=== PATIENT | male | born 1970 | race Caucasian/White ===

== ENCOUNTER 2020-01-06 15:52 | Inpatient (IN) | payer MEDICAID ==
[~2020-01-06] VITALS: Ht 182.9 cm; Wt 131.5 kg
[2020-01-06] MEDS ORDERED: MORPHINE SULFATE 4 MG/ML CPJ (NOT FOR IM USE) IV STA (17:42)
[2020-01-06] MEDS ORDERED: ONDANSETRON HCL 4MG/2ML INJ IV STA (17:42)
[2020-01-06 18:44] LABS: BASOPHILS % 0.5 % (0.0-2.0); EOSINOPHILS % 1.8 % (0.0-5.0); HEMATOCRIT. 35.3 % (42.0-52.0); HEMOGLOBIN. 11.9 g/dL (14.0-18.0); LYMPHOCYTES % 44.7 % (20.0-50.0); MEAN CORPUSCULAR HEMOGLOBIN 28.8 pg (28.0-32.0); MEAN CORPUSCULAR VOLUME 85.6 fL (80.0-94.0); MEAN PLATELET VOLUME 10.5 fl (7.4-10.4); PLATELET 137 x1000/uL (130-400); RED BLOOD CELL COUNT 4.13 mill/uL (4.7-6.1)
[2020-01-06 18:46] LABS: CHLORIDE 110 mEq/L (98-107)
[2020-01-06] MEDS ORDERED: ASPIRIN 81MG TABLET PO ONE (20:15)
[2020-01-06] MEDS: ONDANSETRON HCL 4MG/2ML INJ IV PRN (21:43)
[2020-01-06] MEDS: MORPHINE SULFATE 2 MG/ML CPJ (NOT FOR IM USE) IV PRN (21:43)
[2020-01-06] MEDS ORDERED: CLONIDINE 0.1MG TABLET PO PRN (21:45)
[2020-01-06] MEDS ORDERED: METO100T16 PO (23:43)
[2020-01-06 23:44] VITALS: BP 129/84
[2020-01-06] MEDS ORDERED: SIMV10TA97 PO (23:44)
[2020-01-06] MEDS ORDERED: TOPUD PO (23:44)
[2020-01-06] MEDS ORDERED: RIVA20TA PO (23:44)
[2020-01-06] MEDS ORDERED: LOSA100T32 PO (23:44)
[2020-01-06] MEDS ORDERED: GABA-531 PO (23:44)
[2020-01-06] MEDS ORDERED: FAMO-135 MT (23:44)
[2020-01-07] MEDS ORDERED: LORAZEPAM 1MG TABLET PO PRN (00:30)
[2020-01-07] MEDS ORDERED: MORPHINE SULFATE 2 MG/ML CPJ (NOT FOR IM USE) IV PRN (00:30)
[2020-01-07] MEDS ORDERED: NON FORMULARY PATIENT HOME MED XX SCH (00:30)
[2020-01-07] MEDS ORDERED: METF-815 PO (00:35)
[2020-01-07 04:00] VITALS: BP 131/86
[2020-01-07] MEDS: BLOOD SUGAR DIAGNOSTIC STRIP TEST SCH ×4 (06:33→20:36)
[2020-01-07 07:09] LABS: HDL CHOLESTEROL 46 mg/dL (40-59); LDL CHOLESTEROL 113 mg/dL (5-100)
[2020-01-07 07:12] LABS: CREATINE KINASE 127 IU/L (39-308)
[2020-01-07 07:13] LABS: CREATINE KINASE MB FRACTION < 1.0 ng/mL (0.5-3.6)
[2020-01-07 07:52] VITALS: BP 160/91
[2020-01-07] MEDS: MORPHINE SULFATE 2 MG/ML CPJ (NOT FOR IM USE) IV PRN ×2 (07:58→16:57)
[2020-01-07] MEDS: ONDANSETRON HCL 4MG/2ML INJ IV PRN (08:10)
[2020-01-07] MEDS ORDERED: LOSARTAN POTASSIUM 100 MG TABLET PO SCH (09:00)
[2020-01-07] MEDS: GABAPENTIN 300MG CAPSULE PO SCH (09:22)
[2020-01-07] MEDS: METOPROLOL TARTRATE 100MG TABLET PO SCH ×2 (09:23→20:39)
[2020-01-07] MEDS: METFORMIN HCL 500MG TABLET PO SCH ×2 (09:23→18:44)
[2020-01-07 12:00] VITALS: BP 138/71
[2020-01-07] MEDS: DILTIAZEM HCL 60MG TABLET PO SCH ×2 (13:03→18:44)
[2020-01-07 14:59] LABS: CLARITY URINE CLEAR (CLEAR); COLOR URINE YELLOW (YELLOW); KETONES URINE NEGATIVE (NEGATIVE); LEUKOCYTE ESTERASE URINE NEGATIVE (NEGATIVE); NITRITE URINE NEGATIVE (NEGATIVE); OCCULT BLOOD URINE NEGATIVE (NEGATIVE); PH URINE 5.5 (4.5-8.0); PROTEIN URINE NEGATIVE (NEGATIVE); SPECIFIC GRAVITY URINE 1.015 (1.005-1.030)
[2020-01-07 15:13] LABS: *AMPHETAMINES SCREEN URINE NEGATIVE (NEGATIVE); *BARBITURATES SCREEN URINE NEGATIVE (NEGATIVE); *BENZODIAZEPINES SCREEN URINE PRESUMTIVE POSITIVE (NEGATIVE); CANNABINOID URINE SCREEN NEGATIVE (NEGATIVE); METHADONE URINE SCREEN NEGATIVE (NEGATIVE); OPIATES URINE SCREEN PRESUMTIVE POSITIVE (NEGATIVE); PHENCYCLIDINE URINE SCREEN NEGATIVE (NEGATIVE)
[2020-01-07 15:14] LABS: *COCAINE SCREEN URINE NEGATIVE (NEGATIVE)
[2020-01-07 16:00] VITALS: BP 151/71
[2020-01-07] MEDS ORDERED: RIVAROXABAN 20 MG TABLET PO SCH (17:00)
[2020-01-07] MEDS ORDERED: ATORVASTATIN CALCIUM 10MG TABLET PO SCH ×2 (21:00)
[2020-01-07] MEDS ORDERED: MEDICATION NOT ON FORMULARY EA (Simvastatin 10 MG) PO SCH (21:00)
[2020-01-07] MEDS ORDERED: FAMOTIDINE 20MG TABLET PO SCH (21:00)
[2020-01-08] VITALS: BP 114/73
[2020-01-08] MEDS: MORPHINE SULFATE 2 MG/ML CPJ (NOT FOR IM USE) IV PRN ×2 (01:13→08:50)
[2020-01-08] MEDS: DILTIAZEM HCL 60MG TABLET PO SCH ×2 (01:14→06:11)
[2020-01-08 04:00] VITALS: BP 111/54
[2020-01-08 06:00] VITALS: BP 112/59
[2020-01-08] MEDS: BLOOD SUGAR DIAGNOSTIC STRIP TEST SCH ×2 (06:00→12:20)
[2020-01-08 07:02] LABS: CHLORIDE 105 mEq/L (98-107)
[2020-01-08 07:24] LABS: EOSINOPHILS % 2.8 % (0.0-5.0); HEMATOCRIT. 33.4 % (42.0-52.0); HEMOGLOBIN. 11.2 g/dL (14.0-18.0); LYMPHOCYTES % 37.4 % (20.0-50.0); MEAN CORPUSCULAR HEMOGLOBIN 28.8 pg (28.0-32.0); MEAN CORPUSCULAR VOLUME 85.8 fL (80.0-94.0); MEAN PLATELET VOLUME 11.2 fl (7.4-10.4); MONOCYTES % 12.2 % (2.0-8.0); NEUTROPHILS % 46.6 % (40.0-76.0); PLATELET 132 x1000/uL (130-400); RED BLOOD CELL COUNT 3.89 mill/uL (4.7-6.1); RED CELL DISTRIBUTION WIDTH 17.3 % (11.6-14.6)
[2020-01-08 08:00] VITALS: BP 122/70
[2020-01-08] MEDS: METFORMIN HCL 500MG TABLET PO SCH (09:06)
[2020-01-08] MEDS: GABAPENTIN 300MG CAPSULE PO SCH (09:06)
[2020-01-08 12:59] VITALS: BP 122/70
== END 2020-01-08 13:59 | disposition home or self-care (01) | DRG 201 ==
LOC: ER 15:52 → 6WST 20:10 → ENRESERV 21:25
PROVIDERS: ADMIT Internal Medicine; ATTEND Internal Medicine
DX: I48.91 Unspecified atrial fibrillation (principal); E87.8 Other disorders of electrolyte and fluid balance, not elsewhere classified; I24.8 Other forms of acute ischemic heart disease; E66.01 Morbid (severe) obesity due to excess calories; D64.9 Anemia, unspecified; E11.9 Type 2 diabetes mellitus without complications; R07.89 Other chest pain; E78.5 Hyperlipidemia, unspecified; I10 Essential (primary) hypertension; I16.0 Hypertensive urgency; Z88.8 Allergy status to other drugs, medicaments and biological substances; Z79.01 Long term (current) use of anticoagulants; Z79.84 Long term (current) use of oral hypoglycemic drugs; Z79.899 Other long term (current) drug therapy; Z71.3 Dietary counseling and surveillance; Z68.39 Body mass index [BMI] 39.0-39.9, adult
CPT/HCPCS: 36415; 71045; 80048; 80053; 80061; 80305; 81003; 82550; 82553; 82962; 83036; 83880; 84443; 84484; 85025; 93005; 96374; 99285; J2270; J2405

== ENCOUNTER 2020-01-29 23:18 | Inpatient (IN) | payer MEDICAID ==
[~2020-01-29] VITALS: Ht 182.9 cm; Wt 131.5 kg
[~2020-01-29 23:18] MED LIST: FAMO-135 MT; GABA-531 PO; LOSA100T32 PO; METF-815 PO; METO100T16 PO; RIVA20TA PO; SIMV10TA97 PO; TOPUD PO
[2020-01-30] MEDS ORDERED: MORPHINE SULFATE 4 MG/ML CPJ (NOT FOR IM USE) IV STA (00:22)
[2020-01-30] MEDS ORDERED: ONDANSETRON HCL 4MG/2ML INJ IV STA (00:22)
[2020-01-30] MEDS ORDERED: FAMOTIDINE 20MG/2ML VIAL IV STA (00:22)
[2020-01-30 00:44] LABS: BASOPHILS % 1.2 % (0.0-2.0); EOSINOPHILS % 1.5 % (0.0-5.0); HEMATOCRIT. 35.8 % (42.0-52.0); HEMOGLOBIN. 12.3 g/dL (14.0-18.0); LYMPHOCYTES % 38.4 % (20.0-50.0); MEAN CORPUSCULAR HEMOGLOBIN 29.9 pg (28.0-32.0); MEAN CORPUSCULAR VOLUME 86.9 fL (80.0-94.0); MEAN PLATELET VOLUME 10.7 fl (7.4-10.4); MONOCYTES % 9.8 % (2.0-8.0); NEUTROPHILS % 49.1 % (40.0-76.0); PLATELET 145 x1000/uL (130-400); RED BLOOD CELL COUNT 4.12 mill/uL (4.7-6.1); RED CELL DISTRIBUTION WIDTH 17.1 % (11.6-14.6)
[2020-01-30 00:52] LABS: CHLORIDE 104 mEq/L (98-107)
[2020-01-30 00:56] LABS: ETHANOL BLOOD 205 mg/dL
[2020-01-30 01:17] LABS: CLARITY URINE CLEAR (CLEAR); COLOR URINE YELLOW (YELLOW); SPECIFIC GRAVITY URINE 1.008 (1.005-1.030)
[2020-01-30 01:18] LABS: *AMPHETAMINES SCREEN URINE PRESUMTIVE POSITIVE (NEGATIVE); *BARBITURATES SCREEN URINE NEGATIVE (NEGATIVE); CANNABINOID URINE SCREEN NEGATIVE (NEGATIVE); KETONES URINE NEGATIVE (NEGATIVE); NITRITE URINE NEGATIVE (NEGATIVE); OCCULT BLOOD URINE NEGATIVE (NEGATIVE); PHENCYCLIDINE URINE SCREEN NEGATIVE (NEGATIVE); PROTEIN URINE NEGATIVE (NEGATIVE)
[2020-01-30 01:19] LABS: LEUKOCYTE ESTERASE URINE NEGATIVE (NEGATIVE)
[2020-01-30 01:21] LABS: *BENZODIAZEPINES SCREEN URINE PRESUMTIVE POSITIVE (NEGATIVE); *COCAINE SCREEN URINE NEGATIVE (NEGATIVE); METHADONE URINE SCREEN NEGATIVE (NEGATIVE); OPIATES URINE SCREEN NEGATIVE (NEGATIVE)
[2020-01-30] MEDS ORDERED: SODIUM CHLORIDE 0.9% 1,000 ML IV ONE (03:10)
[2020-01-30] MEDS ORDERED: LORAZEPAM 2MG/ML CPJ IV SCH (03:15)
[2020-01-30 08:30] VITALS: BP 136/98
[2020-01-30] MEDS ORDERED: DOCUSATE SODIUM 100MG CAPSULE PO PRN (09:00)
[2020-01-30] MEDS ORDERED: ZOLPIDEM TARTRATE 5MG TABLET PO PRN (09:00)
[2020-01-30] MEDS: BLOOD SUGAR DIAGNOSTIC STRIP TEST SCH ×4 (09:00→21:00)
[2020-01-30] MEDS ORDERED: LORAZEPAM 0.5MG TABLET PO PRN (09:00)
[2020-01-30] MEDS ORDERED: MAGNESIUM/ALUMINUM HYDROXIDE/SIMETHICONE 30ML UDC PO PRN (09:00)
[2020-01-30] MEDS ORDERED: CLONIDINE 0.1MG TABLET PO PRN (09:00)
[2020-01-30] MEDS ORDERED: KETOROLAC 15MG/ML VIAL IV PRN (09:00)
[2020-01-30] MEDS ORDERED: ENOXAPARIN 40MG/0.4ML SYR SUBCUT SCH (09:00)
[2020-01-30] MEDS ORDERED: IPRATROPIUM/ALBUTEROL 0.5-3(2.5)MG/3ML NEB NEB PRN (09:00)
[2020-01-30] MEDS ORDERED: GUAIFENESIN 200MG/10ML SUGAR FREE UDC PO PRN (09:00)
[2020-01-30] MEDS ORDERED: DEXTROSE 50% WATER 50ML SYRINGE IV PRN (09:00)
[2020-01-30] MEDS ORDERED: ONDANSETRON HCL 4MG/2ML INJ IV PRN (09:00)
[2020-01-30] MEDS ORDERED: ACETAMINOPHEN 325MG TABLET PO PRN ×2 (09:00)
[2020-01-30 09:18] VITALS: BP 136/98
[2020-01-30] MEDS: FAMOTIDINE 20MG TABLET PO SCH ×2 (11:00→21:01)
[2020-01-30] MEDS: ENOXAPARIN 30MG/0.3ML SYR SUBCUT SCH ×2 (11:07→21:03)
[2020-01-30] MEDS: ASPIRIN 325MG EC TABLET PO SCH (11:07)
[2020-01-30] MEDS: INSULIN LISPRO 100 UNITS/ML SUBCUT SCH ×3 (11:41→21:01)
[2020-01-30] MEDS ORDERED: DILTIAZEM HCL 60MG TABLET PO SCH (12:00)
[2020-01-30 12:27] VITALS: BP 140/88
[2020-01-30] MEDS: GABAPENTIN 100MG CAPSULE PO SCH ×2 (13:04→21:01)
[2020-01-30 16:00] VITALS: BP 131/77
[2020-01-30 16:17] LABS: CREATINE KINASE 542 IU/L (39-308)
[2020-01-30 16:18] LABS: CREATINE KINASE MB FRACTION 2.8 ng/mL (0.5-3.6)
[2020-01-30] MEDS: DILTIAZEM HCL 60MG TABLET PO SCH (17:38)
[2020-01-30 20:00] VITALS: BP 137/71
[2020-01-30 23:39] LABS: CREATINE KINASE 582 IU/L (39-308)
[2020-01-30 23:40] LABS: CREATINE KINASE MB FRACTION 2.3 ng/mL (0.5-3.6)
[2020-01-31] VITALS: BP 135/82
[2020-01-31] MEDS: DILTIAZEM HCL 60MG TABLET PO SCH ×2 (00:22→06:10)
[2020-01-31 04:00] VITALS: BP 131/82
[2020-01-31] MEDS: GABAPENTIN 100MG CAPSULE PO SCH (06:10)
[2020-01-31] MEDS: BLOOD SUGAR DIAGNOSTIC STRIP TEST SCH (07:58)
[2020-01-31] MEDS: INSULIN LISPRO 100 UNITS/ML SUBCUT SCH (07:58)
[2020-01-31] MEDS: FAMOTIDINE 20MG TABLET PO SCH (08:16)
[2020-01-31] MEDS: ASPIRIN 325MG EC TABLET PO SCH (08:17)
[2020-01-31] MEDS: ENOXAPARIN 30MG/0.3ML SYR SUBCUT SCH (08:18)
[2020-01-31 08:30] VITALS: BP 107/57
[2020-01-31 09:17] VITALS: BP 107/57
== END 2020-01-31 11:47 | disposition home or self-care (01) | DRG 201 ==
LOC: ER 23:18 → 7WST 01-30 04:32 → ENRESERV 01-30 07:17
PROVIDERS: ADMIT Internal Medicine; ATTEND Internal Medicine
DX: I48.91 Unspecified atrial fibrillation (principal); K74.60 Unspecified cirrhosis of liver; E11.9 Type 2 diabetes mellitus without complications; E66.9 Obesity, unspecified; E78.00 Pure hypercholesterolemia, unspecified; F15.10 Other stimulant abuse, uncomplicated; I10 Essential (primary) hypertension; F19.10 Other psychoactive substance abuse, uncomplicated; Z88.8 Allergy status to other drugs, medicaments and biological substances; Z68.39 Body mass index [BMI] 39.0-39.9, adult; Z79.899 Other long term (current) drug therapy; Z90.49 Acquired absence of other specified parts of digestive tract
CPT/HCPCS: 36415; 71045; 74176; 80053; 80061; 80305; 80320; 81003; 82550; 82553; 82962; 83036; 84484; 85025; 86850; 86900; 93005; 93970; 99285; J1650; J1815; J1885; J2060; J2270; J2405; J3490; G0480

== ENCOUNTER 2020-04-01 08:11 | Inpatient (IN) | payer MEDICAID ==
[~2020-04-01] VITALS: Ht 177.8 cm; Wt 117.9 kg
[~2020-04-01 08:11] MED LIST changes: -TOPUD PO
[2020-04-01] MEDS ORDERED: ASPIRIN 325MG EC TABLET PO ONE (08:45)
[2020-04-01 09:04] LABS: BASOPHILS % 0.4 % (0.0-2.0); EOSINOPHILS % 0.9 % (0.0-5.0); HEMATOCRIT. 39.1 % (42.0-52.0); MEAN CORPUSCULAR HEMOGLOBIN 27.5 pg (28.0-32.0); MEAN CORPUSCULAR VOLUME 82.7 fL (80.0-94.0); MEAN PLATELET VOLUME 10.4 fl (7.4-10.4); MONOCYTES % 8.9 % (2.0-8.0); NEUTROPHILS % 48.8 % (40.0-76.0); PLATELET 186 x1000/uL (130-400); RED BLOOD CELL COUNT 4.73 mill/uL (4.7-6.1); RED CELL DISTRIBUTION WIDTH 15.5 % (11.6-14.6)
[2020-04-01 09:08] LABS: CHLORIDE 106 mEq/L (98-107)
[2020-04-01] MEDS ORDERED: ONDANSETRON HCL 4MG/2ML INJ IV ONE (09:15)
[2020-04-01] MEDS ORDERED: MORPHINE SULFATE 4 MG/ML CPJ (NOT FOR IM USE) IV ONE (09:15)
[2020-04-01 09:40] LABS: ETHANOL BLOOD 377 mg/dL
[2020-04-01] MEDS ORDERED: CLONIDINE 0.1MG TABLET PO PRN (13:00)
[2020-04-01] MEDS ORDERED: ONDANSETRON HCL 4MG/2ML INJ IV PRN (13:00)
[2020-04-01 13:07] LABS: CLARITY URINE CLEAR (CLEAR); COLOR URINE YELLOW (YELLOW); KETONES URINE NEGATIVE (NEGATIVE); LEUKOCYTE ESTERASE URINE NEGATIVE (NEGATIVE); NITRITE URINE NEGATIVE (NEGATIVE); OCCULT BLOOD URINE NEGATIVE (NEGATIVE); PH URINE 5.5 (4.5-8.0); PROTEIN URINE NEGATIVE (NEGATIVE); SPECIFIC GRAVITY URINE 1.006 (1.005-1.030)
[2020-04-01 13:19] LABS: *AMPHETAMINES SCREEN URINE NEGATIVE (NEGATIVE); *BARBITURATES SCREEN URINE NEGATIVE (NEGATIVE); *BENZODIAZEPINES SCREEN URINE NEGATIVE (NEGATIVE); CANNABINOID URINE SCREEN NEGATIVE (NEGATIVE); OPIATES URINE SCREEN PRESUMTIVE POSITIVE (NEGATIVE); PHENCYCLIDINE URINE SCREEN NEGATIVE (NEGATIVE)
[2020-04-01 13:20] LABS: *COCAINE SCREEN URINE NEGATIVE (NEGATIVE); METHADONE URINE SCREEN NEGATIVE (NEGATIVE)
[2020-04-01] MEDS ORDERED: FOLIC ACID 1 MG, MVI, ADULT NO.1 10 ML in DEXTROSE 5% WATER 1,000 ML IV SCH ×3 (14:15)
[2020-04-01] MEDS ORDERED: POTASSIUM CHLORIDE 20MEQ TABLET SR PO SCH (14:15)
[2020-04-01] MEDS: CHLORDIAZEPOXIDE 25MG CAPSULE PO SCH ×2 (14:23→21:22)
[2020-04-01] MEDS: METOPROLOL TARTRATE 25MG TABLET PO SCH ×2 (14:45→21:22)
[2020-04-01] MEDS ORDERED: KETOROLAC 30MG/ML VIAL IV PRN (16:15)
[2020-04-01] MEDS: LORAZEPAM 2MG/ML CPJ IV PRN (18:12)
[2020-04-01] MEDS ORDERED: ENOXAPARIN 120MG/0.8ML SYR SUBCUT NR (22:00)
[2020-04-01 23:15] VITALS: BP 135/67
[2020-04-02] MEDS: ACETAMINOPHEN 325MG TABLET PO PRN (04:52)
[2020-04-02] MEDS: LORAZEPAM 2MG/ML CPJ IV PRN (04:52)
[2020-04-02] MEDS: CHLORDIAZEPOXIDE 25MG CAPSULE PO SCH ×3 (05:04→21:13)
[2020-04-02 07:27] LABS: BASOPHILS % 0.5 % (0.0-2.0); EOSINOPHILS % 0.7 % (0.0-5.0); HEMATOCRIT. 35.3 % (42.0-52.0); HEMOGLOBIN. 11.7 g/dL (14.0-18.0); MEAN CORPUSCULAR HEMOGLOBIN 27.4 pg (28.0-32.0); MEAN CORPUSCULAR VOLUME 82.5 fL (80.0-94.0); MEAN PLATELET VOLUME 10.5 fl (7.4-10.4); MONOCYTES % 14.5 % (2.0-8.0); NEUTROPHILS % 60.3 % (40.0-76.0); PLATELET 122 x1000/uL (130-400); RED BLOOD CELL COUNT 4.28 mill/uL (4.7-6.1); RED CELL DISTRIBUTION WIDTH 15.3 % (11.6-14.6)
[2020-04-02 07:40] LABS: CHLORIDE 104 mEq/L (98-107)
[2020-04-02 08:00] VITALS: BP 141/87
[2020-04-02] MEDS: ASPIRIN 81MG TABLET PO SCH (09:59)
[2020-04-02] MEDS: METOPROLOL TARTRATE 25MG TABLET PO SCH ×2 (09:59→21:14)
[2020-04-02] MEDS: ENOXAPARIN 120MG/0.8ML SYR SUBCUT SCH ×2 (10:00→21:25)
[2020-04-02 12:00] VITALS: BP 151/87
[2020-04-02] MEDS ORDERED: FOLIC ACID 1 MG, THIAMINE HCL 100 MG, MVI, ADULT NO.1 10 ML in DEXTROSE 5% WATER 1,000 ML IV SCH ×4 (14:00)
[2020-04-02 16:00] VITALS: BP 150/86
[2020-04-03] MEDS: CHLORDIAZEPOXIDE 25MG CAPSULE PO SCH (06:19)
[2020-04-03 06:25] LABS: BASOPHILS % 0.6 % (0.0-2.0); EOSINOPHILS % 1.5 % (0.0-5.0); HEMATOCRIT. 34.3 % (42.0-52.0); HEMOGLOBIN. 11.6 g/dL (14.0-18.0); LYMPHOCYTES % 35.8 % (20.0-50.0); MEAN CORPUSCULAR HEMOGLOBIN 27.7 pg (28.0-32.0); MEAN PLATELET VOLUME 10.9 fl (7.4-10.4); MONOCYTES % 14.5 % (2.0-8.0); NEUTROPHILS % 47.6 % (40.0-76.0); PLATELET 99 x1000/uL (130-400); RED BLOOD CELL COUNT 4.18 mill/uL (4.7-6.1)
[2020-04-03 06:35] LABS: CHLORIDE 102 mEq/L (98-107)
[2020-04-03 08:00] VITALS: BP 154/99
[2020-04-03] MEDS: ENOXAPARIN 120MG/0.8ML SYR SUBCUT SCH (09:00)
[2020-04-03] MEDS: ASPIRIN 81MG TABLET PO SCH (09:00)
[2020-04-03] MEDS: ACETAMINOPHEN 325MG TABLET PO PRN (09:23)
[2020-04-03] MEDS: METOPROLOL TARTRATE 25MG TABLET PO SCH (09:23)
[2020-04-03 12:00] VITALS: BP 124/79
[2020-04-03] MEDS ORDERED: METO25TA6 PO (12:43)
[2020-04-03 13:09] VITALS: BP 124/79
== END 2020-04-03 17:29 | disposition home or self-care (01) | DRG 203 ==
LOC: ER 08:11 → 5WST 10:17 → EDBEDREQTM 10:29 → EDBEDREQ 10:29 → ENRESERV 19:27
PROVIDERS: ADMIT Internal Medicine; ATTEND Internal Medicine
DX: M94.0 Chondrocostal junction syndrome [Tietze] (principal); K74.60 Unspecified cirrhosis of liver; E83.51 Hypocalcemia; I48.20 Chronic atrial fibrillation, unspecified; D64.9 Anemia, unspecified; E66.9 Obesity, unspecified; E78.5 Hyperlipidemia, unspecified; R73.03 Prediabetes; E87.6 Hypokalemia; I10 Essential (primary) hypertension; Y90.8 Blood alcohol level of 240 mg/100 ml or more; E78.00 Pure hypercholesterolemia, unspecified; F10.129 Alcohol abuse with intoxication, unspecified; Z88.8 Allergy status to other drugs, medicaments and biological substances; Z90.49 Acquired absence of other specified parts of digestive tract; Z68.37 Body mass index [BMI] 37.0-37.9, adult; Z71.3 Dietary counseling and surveillance
CPT/HCPCS: 36415; 71045; 80048; 80053; 80305; 80320; 81003; 83880; 84484; 85025; 93005; 93306; 96365; 99285; J1650; J1885; J2060; J2270; J2405; J3411; J3490; J7070; G0480

== ENCOUNTER 2020-12-17 11:58 | Emergency (ER) | payer MEDICAID ==
[~2020-12-17] VITALS: Ht 180.3 cm; Wt 113.0 kg
[~2020-12-17 11:58] MED LIST changes: -GABA-531 PO; +GABA-532 PO; -METF-815 PO; +METF-873 PO; -METO100T16 PO; +METO25TA6 PO
[2020-12-17] MEDS ORDERED: NITROGLYCERIN 0.4MG TABLET SL SL PRN (12:30)
[2020-12-17] MEDS ORDERED: ASPIRIN 81MG TABLET PO ONE (12:30)
[2020-12-17] MEDS ORDERED: DICYCLOMINE 10 MG/5 ML ORAL SYR PO ONE (12:30)
[2020-12-17] MEDS ORDERED: MAGNESIUM/ALUMINUM HYDROXIDE/SIMETHICONE 30ML UDC PO ONE (12:30)
[2020-12-17] MEDS ORDERED: VISCOUS LIDOCAINE 2% 15 ML UDC PO ONE (12:30)
[2020-12-17 12:50] LABS: BASOPHILS % 1.1 % (0.0-2.0); EOSINOPHILS % 0.8 % (0.0-5.0); HEMATOCRIT. 39.3 % (42.0-52.0); HEMOGLOBIN. 12.4 g/dL (14.0-18.0); LYMPHOCYTES % 31.2 % (20.0-50.0); MEAN CORPUSCULAR HEMOGLOBIN 24.4 pg (28.0-32.0); MEAN CORPUSCULAR VOLUME 76.9 fL (80.0-94.0); MEAN PLATELET VOLUME 10.4 fl (7.4-10.4); MONOCYTES % 6.5 % (2.0-8.0); NEUTROPHILS % 60.4 % (40.0-76.0); PLATELET 219 x1000/uL (130-400); RED BLOOD CELL COUNT 5.11 mill/uL (4.7-6.1); RED CELL DISTRIBUTION WIDTH 18.9 % (11.6-14.6)
[2020-12-17 12:56] LABS: CHLORIDE 107 mEq/L (98-107)
[2020-12-17 13:01] LABS: *AMPHETAMINES SCREEN URINE NEGATIVE (NEGATIVE); *BARBITURATES SCREEN URINE NEGATIVE (NEGATIVE); *BENZODIAZEPINES SCREEN URINE PRESUMTIVE POSITIVE (NEGATIVE); *COCAINE SCREEN URINE NEGATIVE (NEGATIVE); METHADONE URINE SCREEN NEGATIVE (NEGATIVE); OPIATES URINE SCREEN NEGATIVE (NEGATIVE)
[2020-12-17 13:02] LABS: CANNABINOID URINE SCREEN NEGATIVE (NEGATIVE); PHENCYCLIDINE URINE SCREEN NEGATIVE (NEGATIVE)
[2020-12-17 13:27] LABS: ETHANOL BLOOD 368 mg/dL
[2020-12-17] MEDS ORDERED: CHLORDIAZEPOXIDE 25MG CAPSULE PO ONE (14:30)
[2020-12-17] MEDS ORDERED: LORAZEPAM 1MG TABLET PO ONE (15:15)
[2020-12-17 15:45] VITALS: BP 119/71
== END 2020-12-17 16:23 | disposition home or self-care (01) ==
LOC: ER 11:58 → CANBEDREQ 18:53
DX: T51.0X1A Toxic effect of ethanol, accidental (unintentional), initial encounter (principal); R07.89 Other chest pain; R00.2 Palpitations; I10 Essential (primary) hypertension; E11.9 Type 2 diabetes mellitus without complications; I48.20 Chronic atrial fibrillation, unspecified; Y90.8 Blood alcohol level of 240 mg/100 ml or more; Z79.01 Long term (current) use of anticoagulants; Z88.8 Allergy status to other drugs, medicaments and biological substances; Y92.524 Gas station as the place of occurrence of the external cause
CPT/HCPCS: 36415; 71045; 74176; 80053; 80305; 80320; 83690; 83880; 84484; 85025; 93005; 99285; Z7610; G0480

== ENCOUNTER 2022-12-03 11:30 | Inpatient (IN) | payer MEDICAID ==
[~2022-12-03] VITALS: Ht 182.9 cm; Wt 108.9 kg
[2022-12-03] MEDS ORDERED: MORPHINE SULFATE 4 MG/ML CPJ (NOT FOR IM USE) IV ONE (11:45)
[2022-12-03] MEDS ORDERED: SODIUM CHLORIDE 0.9% 1,000 ML IV ONE ×2 (12:00→16:15)
[2022-12-03] MEDS: METOPROLOL TARTRATE 5MG/5ML VIAL IV SCH ×2 (12:05→17:41)
[2022-12-03 12:06] LABS: HEMATOCRIT. 39.3 % (42.0-52.0); HEMOGLOBIN. 12.6 g/dL (14.0-18.0); MEAN CORPUSCULAR HEMOGLOBIN 25.1 pg (28.0-32.0); MEAN PLATELET VOLUME 9.7 fl (7.4-10.4); PLATELET 272 x1000/uL (130-400); RED BLOOD CELL COUNT 5.03 mill/uL (4.7-6.1); RED CELL DISTRIBUTION WIDTH 20.4 % (11.6-14.6)
[2022-12-03 12:13] LABS: CHLORIDE 113 mEq/L (98-107)
[2022-12-03 12:38] LABS: ETHANOL BLOOD 365 mg/dL
[2022-12-03 12:41] LABS: NUCLEATED RED BLOOD CELLS 2 /100 WBC; PLATELET ESTIMATE NORMAL
[2022-12-03 16:06] LABS: *AMPHETAMINES SCREEN URINE PRESUMTIVE POSITIVE (NEGATIVE); *BARBITURATES SCREEN URINE NEGATIVE (NEGATIVE); *BENZODIAZEPINES SCREEN URINE NEGATIVE (NEGATIVE); *COCAINE SCREEN URINE NEGATIVE (NEGATIVE); CANNABINOID URINE SCREEN NEGATIVE (NEGATIVE); METHADONE URINE SCREEN NEGATIVE (NEGATIVE); OPIATES URINE SCREEN PRESUMTIVE POSITIVE (NEGATIVE); PHENCYCLIDINE URINE SCREEN NEGATIVE (NEGATIVE)
[2022-12-03] MEDS ORDERED: METOPROLOL SUCCINATE 50MG ER TABLET PO ONE (16:45)
[2022-12-03] MEDS ORDERED: PANTOPRAZOLE 40MG DR TABLET PO ONE (17:15)
[2022-12-03] MEDS ORDERED: VISCOUS LIDOCAINE 2% 15 ML UDC MM ONE (17:15)
[2022-12-03] MEDS ORDERED: MAGNESIUM/ALUMINUM HYDROXIDE/SIMETHICONE 30ML UDC PO ONE (17:15)
[2022-12-03] MEDS ORDERED: PROT40 MT (17:18)
[2022-12-03] MEDS ORDERED: MAG-55 MT (17:18)
[2022-12-03] MEDS ORDERED: KETOROLAC 15MG/ML VIAL IV ONE (18:00)
[2022-12-03] MEDS ORDERED: ACETAMINOPHEN 325MG TABLET PO PRN ×2 (18:15)
[2022-12-03] MEDS ORDERED: MAGNESIUM/ALUMINUM HYDROXIDE/SIMETHICONE 30ML UDC PO PRN (18:15)
[2022-12-03] MEDS ORDERED: NITROGLYCERIN 0.4MG TABLET SL SL PRN (18:15)
[2022-12-03] MEDS ORDERED: GUAIFENESIN 200MG/10ML SUGAR FREE UDC PO PRN (18:15)
[2022-12-03] MEDS ORDERED: ONDANSETRON HCL 4MG/2ML INJ IV PRN (18:15)
[2022-12-03] MEDS ORDERED: POTASSIUM CHLORIDE 20MEQ TABLET SR PO NR (18:15)
[2022-12-03] MEDS ORDERED: DOCUSATE SODIUM 100MG CAPSULE PO PRN (18:15)
[2022-12-03] MEDS ORDERED: CLONIDINE 0.1MG TABLET PO PRN (18:15)
[2022-12-03] MEDS ORDERED: IPRATROPIUM/ALBUTEROL 0.5-3(2.5)MG/3ML NEB NEB PRN (18:15)
[2022-12-03] MEDS ORDERED: ZOLPIDEM TARTRATE 5MG TABLET PO PRN (18:15)
[2022-12-03] MEDS ORDERED: ENOXAPARIN 100MG/ML SYR SUBCUT NR (18:30)
[2022-12-03] MEDS ORDERED: IPRATROPIUM BROMIDE (0.02%) 0.5MG/2.5ML NEB HHN PRN (18:30)
[2022-12-03] MEDS ORDERED: ALBUTEROL (0.083%) 2.5MG/3ML NEB HHN PRN (18:30)
[2022-12-03] MEDS: SODIUM CHLORIDE 0.9% 1,000 ML IV SCH (19:01)
[2022-12-03 19:25] LABS: INR 1.1
[2022-12-03] MEDS ORDERED: DEXTROSE 50% WATER 50ML SYRINGE IV PRN (19:30)
[2022-12-03 19:36] LABS: VITAMIN B12 SERUM > 2000.0 pg/mL (211-911)
[2022-12-03] MEDS: MVI, ADULT NO.1 10 ML, FOLIC ACID 1 MG, THIAMINE HCL 100 MG in SODIUM CHLORIDE 0.9% 1,0... IV NR ×4 (20:30)
[2022-12-03] MEDS: BLOOD SUGAR DIAGNOSTIC STRIP TEST SCH (21:00)
[2022-12-03] MEDS: INSULIN LISPRO 100 UNITS/ML SUBCUT SCH (21:00)
[2022-12-03 22:36] LABS: CREATINE KINASE MB FRACTION 1.7 ng/mL (0.5-3.6)
[2022-12-03] MEDS: FAMOTIDINE 20MG TABLET PO SCH (23:10)
[2022-12-03] MEDS: KETOROLAC 15MG/ML VIAL IV PRN (23:11)
[2022-12-03] MEDS: DILTIAZEM HCL 60MG TABLET PO SCH (23:14)
[2022-12-03 23:23] VITALS: BP 105/58
[2022-12-03 23:27] VITALS: BP 105/58
[2022-12-03 23:36] LABS: T4 FREE 1.18 ng/dL (0.76-1.46)
[2022-12-04 04:00] VITALS: BP 118/70
[2022-12-04] MEDS: SODIUM CHLORIDE 0.9% 1,000 ML IV SCH ×3 (04:10→23:54)
[2022-12-04] MEDS: BLOOD SUGAR DIAGNOSTIC STRIP TEST SCH ×4 (05:39→20:03)
[2022-12-04] MEDS: ENOXAPARIN 100MG/ML SYR SUBCUT SCH ×2 (05:50→17:57)
[2022-12-04] MEDS: DILTIAZEM HCL 60MG TABLET PO SCH ×4 (05:50→23:54)
[2022-12-04] MEDS: INSULIN LISPRO 100 UNITS/ML SUBCUT SCH ×4 (06:38→20:52)
[2022-12-04 07:30] LABS: HEMATOCRIT. 34.5 % (42.0-52.0); HEMOGLOBIN. 11.2 g/dL (14.0-18.0); MEAN CORPUSCULAR HEMOGLOBIN 25.5 pg (28.0-32.0); MEAN CORPUSCULAR VOLUME 78.9 fL (80.0-94.0); MEAN PLATELET VOLUME 10.7 fl (7.4-10.4); PLATELET 250 x1000/uL (130-400); RED BLOOD CELL COUNT 4.37 mill/uL (4.7-6.1); RED CELL DISTRIBUTION WIDTH 20.2 % (11.6-14.6)
[2022-12-04 08:00] VITALS: BP 120/62
[2022-12-04 08:16] LABS: CLARITY URINE CLEAR (CLEAR); COLOR URINE YELLOW (YELLOW); KETONES URINE 1+ (NEGATIVE); LEUKOCYTE ESTERASE URINE NEGATIVE (NEGATIVE); NITRITE URINE NEGATIVE (NEGATIVE); OCCULT BLOOD URINE NEGATIVE (NEGATIVE); PH URINE 5.5 (4.5-8.0); PROTEIN URINE TRACE (NEGATIVE); SPECIFIC GRAVITY URINE 1.011 (1.005-1.030)
[2022-12-04 08:43] LABS: CHLORIDE 104 mEq/L (98-107)
[2022-12-04 09:15] LABS: AMYLASE 51 IU/L (25-115); CREATINE KINASE 110 IU/L (39-308); CREATINE KINASE MB FRACTION 1.3 ng/mL (0.5-3.6); PHOSPHORUS 3.1 mg/dL (2.5-4.9)
[2022-12-04] MEDS: ASPIRIN 325MG EC TABLET PO SCH (09:44)
[2022-12-04] MEDS: FAMOTIDINE 20MG TABLET PO SCH ×2 (09:46→20:31)
[2022-12-04] MEDS: KETOROLAC 15MG/ML VIAL IV PRN ×2 (09:48→16:10)
[2022-12-04 12:00] VITALS: BP 130/76
[2022-12-04 14:02] LABS: PLATELET ESTIMATE NORMAL
[2022-12-04 16:00] VITALS: BP 136/72
[2022-12-04] MEDS: MVI, ADULT NO.1 10 ML, FOLIC ACID 1 MG, THIAMINE HCL 100 MG in SODIUM CHLORIDE 0.9% 1,0... IV NR ×4 (19:30)
[2022-12-04 20:00] VITALS: BP 121/63
[2022-12-05] VITALS: BP 119/62
[2022-12-05 04:00] VITALS: BP 124/70
[2022-12-05] MEDS: BLOOD SUGAR DIAGNOSTIC STRIP TEST SCH ×2 (06:02→11:41)
[2022-12-05] MEDS: ENOXAPARIN 100MG/ML SYR SUBCUT SCH (06:20)
[2022-12-05] MEDS: DILTIAZEM HCL 60MG TABLET PO SCH ×2 (06:20→11:42)
[2022-12-05] MEDS: INSULIN LISPRO 100 UNITS/ML SUBCUT SCH ×2 (06:29→11:42)
[2022-12-05 08:00] VITALS: BP 151/73
[2022-12-05] MEDS: ASPIRIN 325MG EC TABLET PO SCH (08:51)
[2022-12-05] MEDS: FAMOTIDINE 20MG TABLET PO SCH (08:51)
[2022-12-05] MEDS: SODIUM CHLORIDE 0.9% 1,000 ML IV SCH (08:52)
[2022-12-05 12:00] VITALS: BP 127/75
[2022-12-05 12:34] VITALS: BP 127/75
== END 2022-12-05 13:10 | disposition home or self-care (01) | DRG 201 ==
LOC: ER 11:30 → 7EST 17:55
PROVIDERS: ADMIT Internal Medicine; ATTEND Internal Medicine
DX: I48.91 Unspecified atrial fibrillation (principal); E44.1 Mild protein-calorie malnutrition; D63.8 Anemia in other chronic diseases classified elsewhere; E83.51 Hypocalcemia; E11.9 Type 2 diabetes mellitus without complications; Z20.822 Contact with and (suspected) exposure to COVID-19; E87.6 Hypokalemia; I10 Essential (primary) hypertension; F10.20 Alcohol dependence, uncomplicated; F19.10 Other psychoactive substance abuse, uncomplicated; Z82.49 Family history of ischemic heart disease and other diseases of the circulatory system; Z68.32 Body mass index [BMI] 32.0-32.9, adult; Z79.899 Other long term (current) drug therapy; Y90.8 Blood alcohol level of 240 mg/100 ml or more
CPT/HCPCS: 36415; 71045; 80053; 80305; 80307; 80320; 80329; 81003; 82150; 82550; 82553; 82607; 82746; 82962; 83036; 83540; 83550; 83605; 83735; 83880; 84100; 84145; 84439; 84443; 84484; 85025; 87426; 93005; 93306; 93970; 99285; J1650; J1885; J2270; J3411; J3490; J7030; G0480

== ENCOUNTER 2023-06-12 12:05 | Inpatient (IN) | payer MEDICAID ==
[~2023-06-12] VITALS: Ht 182.9 cm; Wt 123.8 kg
[~2023-06-12 12:05] MED LIST changes: -LOSA100T32 PO; +LOSA100T33 PO; +MAG-55 MT; +PROT40 MT
[2023-06-12] MEDS ORDERED: FAMOTIDINE 20MG TABLET PO ONE (12:45)
[2023-06-12] MEDS ORDERED: MAGNESIUM/ALUMINUM HYDROXIDE/SIMETHICONE 30ML UDC PO ONE (12:45)
[2023-06-12 13:15] LABS: BASOPHILS % 0.4 % (0.0-2.0); EOSINOPHILS % 4.3 % (0.0-5.0); HEMATOCRIT. 33.2 % (42.0-52.0); HEMOGLOBIN. 10.5 g/dL (14.0-18.0); LYMPHOCYTES % 42.1 % (20.0-50.0); MEAN CORPUSCULAR HEMOGLOBIN 22.3 pg (28.0-32.0); MEAN CORPUSCULAR VOLUME 70.6 fL (80.0-94.0); MEAN PLATELET VOLUME 9.1 fl (7.4-10.4); MONOCYTES % 10.9 % (2.0-8.0); NEUTROPHILS % 42.3 % (40.0-76.0); PLATELET 115 x1000/uL (130-400); RED CELL DISTRIBUTION WIDTH 20.5 % (11.6-14.6)
[2023-06-12 13:24] LABS: CHLORIDE 105 mEq/L (98-107)
[2023-06-12] MEDS ORDERED: POTASSIUM CHLORIDE 20MEQ TABLET SR PO ONE (14:15)
[2023-06-12] MEDS ORDERED: MAGNESIUM 2 G PREMIX 50 ML IV ONE (14:15)
[2023-06-12] MEDS ORDERED: KCL 20MEQ/100ML PREMIX 100 ML IV ONE (14:15)
[2023-06-12 14:49] LABS: ETHANOL BLOOD 427 mg/dL (-10)
[2023-06-13] MEDS: MORPHINE SULFATE 2 MG/ML CPJ (NOT FOR IM USE) IV PRN ×5 (00:35→19:05)
[2023-06-13 04:23] VITALS: BP 155/88; PULSE 89; RESP 20; TEMP 97.5
[2023-06-13] MEDS ORDERED: SERT25TA PO (04:45)
[2023-06-13] MEDS ORDERED: LOSA25TA26 PO (04:46)
[2023-06-13] MEDS ORDERED: OMEP40CA20 PO (04:47)
[2023-06-13] MEDS ORDERED: NILO200C2 PO (04:47)
[2023-06-13] MEDS ORDERED: CARV6.2548 PO (04:48)
[2023-06-13] MEDS ORDERED: ALLO100T PO (04:49)
[2023-06-13] MEDS ORDERED: METO-385 PO (04:51)
[2023-06-13] MEDS ORDERED: THIA100T72 PO (04:56)
[2023-06-13] MEDS ORDERED: FOLI-43 MT (04:57)
[2023-06-13] MEDS ORDERED: HYDR-459 PO (04:57)
[2023-06-13] MEDS ORDERED: METF-416 MT (04:59)
[2023-06-13] MEDS ORDERED: HYDR-4001 MT (04:59)
[2023-06-13 05:02] VITALS: BP 148/88; PULSE 88; RESP 18; TEMP 97.5
[2023-06-13] MEDS ORDERED: INSU100I73 (05:08)
[2023-06-13 08:00] VITALS: BP 144/89; PULSE 118; RESP 18; TEMP 97.7
[2023-06-13] MEDS ORDERED: ONDANSETRON HCL 4MG/2ML INJ IV PRN ×2 (08:00→08:15)
[2023-06-13] MEDS ORDERED: LORAZEPAM 0.5MG TABLET PO PRN (08:00)
[2023-06-13] MEDS ORDERED: DOCUSATE SODIUM 100MG CAPSULE PO PRN (08:00)
[2023-06-13] MEDS ORDERED: HYDROCODONE/ACETAMINOPHEN 5/325MG TABLET PO PRN (08:00)
[2023-06-13] MEDS ORDERED: IPRATROPIUM/ALBUTEROL 0.5-3(2.5)MG/3ML NEB HHN PRN (08:00)
[2023-06-13] MEDS ORDERED: ACETAMINOPHEN 325MG TABLET PO PRN ×2 (08:00)
[2023-06-13] MEDS ORDERED: CLONIDINE 0.1MG TABLET PO PRN (08:00)
[2023-06-13] MEDS ORDERED: HYDROCODONE/ACETAMINOPHEN 10/325MG TABLET PO PRN (08:15)
[2023-06-13] MEDS ORDERED: LORAZEPAM 2MG/ML CPJ IV PRN (08:15)
[2023-06-13] MEDS ORDERED: NALOXONE HCL 0.4MG/ML VIAL IV PRN (08:30)
[2023-06-13] MEDS: SODIUM CHLORIDE 0.9% 1,000 ML IV SCH ×3 (08:49→23:24)
[2023-06-13] MEDS: THIAMINE HCL 100MG TABLET PO SCH (08:49)
[2023-06-13] MEDS: MULTIVITAMINS,THER W-MINERALS TABLET PO SCH (08:49)
[2023-06-13] MEDS: FOLIC ACID 1MG TABLET PO SCH (08:49)
[2023-06-13 10:13] LABS: HEMATOCRIT. 31.8 % (42.0-52.0); HEMOGLOBIN. 10.1 g/dL (14.0-18.0); MEAN CORPUSCULAR HEMOGLOBIN 22.3 pg (28.0-32.0); MEAN CORPUSCULAR VOLUME 70.5 fL (80.0-94.0); RED CELL DISTRIBUTION WIDTH 20.2 % (11.6-14.6)
[2023-06-13 10:34] LABS: CHLORIDE 110 mEq/L (98-107)
[2023-06-13 10:42] LABS: CREATINE KINASE 183 IU/L (39-308); CREATINE KINASE MB FRACTION 2.1 ng/mL (0.5-3.6); HDL CHOLESTEROL 69 mg/dL (40-59); LDL CHOLESTEROL 69 mg/dL (5-100)
[2023-06-13] MEDS ORDERED: PNEUMOCOCCAL 23-VAL P-SAC VAC 0.5 ML IM ONE (11:00)
[2023-06-13 11:42] LABS: PLATELET ESTIMATE DECREASED
[2023-06-13 11:45] LABS: HEPATITIS B SURFACE ANTIGEN NEGATIVE
[2023-06-13 11:59] LABS: MEAN PLATELET VOLUME 9.9 fl (7.4-10.4); PLATELET 96 x1000/uL (130-400)
[2023-06-13 12:00] VITALS: BP 139/91; PULSE 81; RESP 18; TEMP 96.5
[2023-06-13 12:01] LABS: INR 1.1; PROTHROMBIN TIME 11.9 sec (9.6-11.0)
[2023-06-13 12:17] LABS: T4 FREE 1.11 ng/dL (0.76-1.46)
[2023-06-13] MEDS: FOLIC ACID 1 MG, THIAMINE HCL 100 MG, MVI, ADULT NO.1 10 ML in DEXTROSE 5% WATER 1,000 ML IV SCH ×4 (13:57)
[2023-06-13] MEDS: CHLORDIAZEPOXIDE 25MG CAPSULE PO SCH ×2 (13:57→22:19)
[2023-06-13 16:00] VITALS: BP 150/92; PULSE 88; RESP 18; TEMP 96.8
[2023-06-13] MEDS: ENOXAPARIN 120MG/0.8ML SYR SUBCUT SCH (17:15)
[2023-06-13] MEDS: PANTOPRAZOLE SODIUM 40 MG/VIAL IV SCH (17:15)
[2023-06-13 18:48] LABS: CREATINE KINASE MB FRACTION 1.6 ng/mL (0.5-3.6)
[2023-06-13] MEDS: AMLODIPINE 10MG TABLET PO SCH (19:04)
[2023-06-13 20:01] VITALS: BP 164/100; PULSE 91; RESP 16; TEMP 97.1
[2023-06-14 00:39] VITALS: BP 151/96; PULSE 98; RESP 15; TEMP 98.6
[2023-06-14] MEDS: MORPHINE SULFATE 2 MG/ML CPJ (NOT FOR IM USE) IV PRN (00:49)
[2023-06-14 04:00] VITALS: BP 164/87; PULSE 94; RESP 21; TEMP 99.1
[2023-06-14] MEDS: CHLORDIAZEPOXIDE 25MG CAPSULE PO SCH ×2 (06:14→14:25)
[2023-06-14 08:00] VITALS: BP 140/79; PULSE 92; RESP 17; TEMP 98.4
[2023-06-14] MEDS: SODIUM CHLORIDE 0.9% 1,000 ML IV SCH ×2 (08:02→15:08)
[2023-06-14] MEDS ORDERED: MORPHINE SULFATE 2 MG/ML CPJ (NOT FOR IM USE) IV PRN (08:15)
[2023-06-14] MEDS ORDERED: TRAMADOL 50MG TABLET PO PRN (08:15)
[2023-06-14] MEDS: FOLIC ACID 1MG TABLET PO SCH (08:57)
[2023-06-14] MEDS: MULTIVITAMINS,THER W-MINERALS TABLET PO SCH (08:57)
[2023-06-14] MEDS: PANTOPRAZOLE SODIUM 40 MG/VIAL IV SCH (08:57)
[2023-06-14] MEDS: ENOXAPARIN 120MG/0.8ML SYR SUBCUT SCH (08:57)
[2023-06-14] MEDS: FOLIC ACID 1 MG, THIAMINE HCL 100 MG, MVI, ADULT NO.1 10 ML in DEXTROSE 5% WATER 1,000 ML IV SCH ×4 (08:58)
[2023-06-14] MEDS: AMLODIPINE 10MG TABLET PO SCH (08:58)
[2023-06-14] MEDS: THIAMINE HCL 100MG TABLET PO SCH (08:58)
[2023-06-14] MEDS ORDERED: LIDOCAINE 5% PATCH TOP SCH (09:00)
[2023-06-14] MEDS ORDERED: MULT-1116 MT (10:13)
[2023-06-14] MEDS ORDERED: LIDO700A30 TOP (10:13)
[2023-06-14] MEDS ORDERED: PROT40 MT (10:13)
[2023-06-14] MEDS ORDERED: CHLO25CA10 MT (10:13)
[2023-06-14 12:00] VITALS: BP 145/77; PULSE 95; RESP 16; TEMP 97.9
[2023-06-14 12:15] LABS: HEMATOCRIT. 30.6 % (42.0-52.0); HEMOGLOBIN. 9.8 g/dL (14.0-18.0); MEAN CORPUSCULAR HEMOGLOBIN 22.4 pg (28.0-32.0); MEAN CORPUSCULAR VOLUME 70.1 fL (80.0-94.0); RED BLOOD CELL COUNT 4.37 mill/uL (4.7-6.1); RED CELL DISTRIBUTION WIDTH 20.6 % (11.6-14.6)
[2023-06-14 12:32] LABS: CHLORIDE 104 mEq/L (98-107)
[2023-06-14 13:37] LABS: MEAN PLATELET VOLUME 9.9 fl (7.4-10.4); PLATELET ESTIMATE DECREASED
[2023-06-14 13:38] LABS: PLATELET 66 x1000/uL (130-400)
[2023-06-14 14:53] VITALS: BP 145/77; PULSE 95; TEMP 97.9; O2SAT 99
[2023-06-18 09:07] LABS: OPIATES SCREEN Negative ng/mL (Cutoff:5); PHENCYCLIDINE SCREEN Negative ng/mL (Cutoff:8)
== END 2023-06-14 17:24 | disposition home or self-care (01) ==
LOC: ER 12:05 → MICUSO 16:25 → EDBEDREQ 16:29 → EDBEDREQTM 16:29 → 3WST 06-13 02:54
PROVIDERS: ADMIT Internal Medicine; ATTEND Internal Medicine
DX: K74.60 Unspecified cirrhosis of liver (principal); G92.8 Other toxic encephalopathy; D69.6 Thrombocytopenia, unspecified; I85.00 Esophageal varices without bleeding; K76.6 Portal hypertension; D64.9 Anemia, unspecified; E11.9 Type 2 diabetes mellitus without complications; D72.819 Decreased white blood cell count, unspecified; R07.89 Other chest pain; I25.10 Atherosclerotic heart disease of native coronary artery without angina pectoris; E87.6 Hypokalemia; F10.229 Alcohol dependence with intoxication, unspecified; R16.1 Splenomegaly, not elsewhere classified; I10 Essential (primary) hypertension; I16.0 Hypertensive urgency; I48.91 Unspecified atrial fibrillation; K40.20 Bilateral inguinal hernia, without obstruction or gangrene, not specified as recurrent; Z79.01 Long term (current) use of anticoagulants; Z90.49 Acquired absence of other specified parts of digestive tract; Z79.899 Other long term (current) drug therapy; Z82.49 Family history of ischemic heart disease and other diseases of the circulatory system
CPT/HCPCS: 36415; 71045; 74176; 80053; 80061; 80307; 80320; 80329; 82550; 82553; 83036; 83735; 84439; 84443; 84481; 84484; 85025; 85379; 86803; 87340; 93005; 93306; 99285; C9113; J1650; J2270; J3411; J3475; J3480; J3490; J7030; J7070; G0480